=== PATIENT | female | born 1965 | race Two or more races ===

== ENCOUNTER 2017-06-18 20:34 | Inpatient (IN) | payer MEDICARE, OTHER ==
[~2017-06-18] VITALS: Ht 175.3 cm; Wt 151.0 kg
[2017-06-18 21:12] LABS: BASOPHILS # (AUTO) 0.1 /CMM (0.0-0.2); BASOPHILS % (AUTO) 1.1 % (0.0-2.0); EOSINOPHILS # (AUTO) 0.5 /CMM (0.0-0.7); EOSINOPHILS % (AUTO) 6.1 % (0.0-6.0); HEMATOCRIT 30 % (33-45); HEMOGLOBIN 9.9 g/dL (11.5-14.8); LYMPHOCYTES # (AUTO) 2.5 /CMM (0.8-4.8); LYMPHOCYTES % (AUTO) 30.5 % (20.0-44.0); MEAN CORPUSCULAR HEMOGLOBIN 25 PG (26.0-33.0); MEAN CORPUSCULAR HGB CONC 33 g/dl (31.0-36.0); MEAN CORPUSCULAR VOLUME 77 fL (82-100); MONOCYTES # (AUTO) 0.4 /CMM (0.1-1.30); MONOCYTES % (AUTO) 5.3 % (2.0-12.0); NEUTROPHILS # (AUTO) 4.8 /CMM (1.8-8.9); PLATELET COUNT (AUTO) 424 /CMM (150-450); RDW COEFFICIENT OF VARIATION 15.5 (11.5-15.0); RED BLOOD CELL COUNT(AUTO) 3.91 MIL/uL (4.0-5.2); WHITE BLOOD COUNT (AUTO) 8.3 K/uL (4.3-11.0)
[2017-06-18 21:24] LABS: CALCIUM, SERUM 9.1 mg/dL (8.5-10.1); CREATININE 3.3 mg/dL (0.6-1.3); POTASSIUM 4.1 mmol/L (3.5-5.1)
[2017-06-18] MEDS ORDERED: MAGNESIUM HYDROXIDE 30 ML UDC PO PRN (22:30)
[2017-06-18] MEDS ORDERED: ACETAMINOPHEN 325 MG TABLET PO PRN (22:30)
[2017-06-18] MEDS ORDERED: PIPERACILLIN /TAZOBACTAM 2.25 G in IV D5W 50 ML IV ONE (22:30)
[2017-06-18] MEDS ORDERED: MAG HYDROX/AL HYDROX/SIMETH 30 ML UDC PO PRN (22:30)
[2017-06-18] MEDS ORDERED: ONDANSETRON HCL/PF 4 MG/2 ML VIAL IVP PRN (22:30)
[2017-06-18] MEDS ORDERED: PIPERACILLIN /TAZOBACTAM 3.375 G VIAL IV ONE (22:40)
[2017-06-18] MEDS ORDERED: PIPERACILLIN /TAZOBACTAM 2.25 G VIAL IV ONE (23:09)
[2017-06-18] MEDS ORDERED: HYDROMORPHONE INJ 0.5 MG/0.5 ML SYRINGE ONE (23:26)
[2017-06-18] MEDS ORDERED: VANCOMYCIN 1 GM in IV D5W 250 ML IV ONE (23:30)
[2017-06-18] MEDS: HYDROMORPHONE INJ 2 MG/ML DISP.SYRIN IV PRN (23:30)
[2017-06-19 00:15] VITALS: BP 141/67
[2017-06-19 01:00] VITALS: BP 144/55
[2017-06-19] MEDS: HYDROCODONE/APAP 5/325MG 1 EACH TABLET PO PRN ×2 (01:33→09:02)
[2017-06-19] MEDS ORDERED: VANCOMYCIN 1 GM VIAL ONE (01:43)
[2017-06-19] MEDS ORDERED: FERR325T23 PO (02:35)
[2017-06-19] MEDS ORDERED: MULT-1185 PO (02:35)
[2017-06-19] MEDS ORDERED: FURO-144 PO (02:35)
[2017-06-19] MEDS ORDERED: LACT1CAP63 PO (02:35)
[2017-06-19] MEDS ORDERED: INSU100C10 SQ (02:35)
[2017-06-19] MEDS ORDERED: SERT100T PO (02:35)
[2017-06-19] MEDS ORDERED: DIVA500T2 PO (02:35)
[2017-06-19] MEDS ORDERED: VIT500LI PO (02:35)
[2017-06-19] MEDS ORDERED: INSU100V7 SQ (02:35)
[2017-06-19] MEDS ORDERED: AMLO5TAB4 PO (02:35)
[2017-06-19] MEDS ORDERED: CRAN450C PO (02:35)
[2017-06-19] MEDS ORDERED: LISI10TA5 PO (02:35)
[2017-06-19] MEDS ORDERED: GABA-534 PO (02:35)
[2017-06-19] MEDS ORDERED: EPOE40002 IJ (02:35)
[2017-06-19] MEDS ORDERED: ATOR20TA PO (02:35)
[2017-06-19] MEDS ORDERED: METO25TA6 PO (02:35)
[2017-06-19] MEDS ORDERED: ASPI-1169 PO (02:35)
[2017-06-19] MEDS ORDERED: ZINC220C6 PO (02:35)
[2017-06-19] MEDS ORDERED: TIZA4CAP PO (02:37)
[2017-06-19] MEDS: HYDROMORPHONE INJ 2 MG/ML DISP.SYRIN IV PRN ×4 (05:31→21:28)
[2017-06-19] MEDS ORDERED: PIPERACILLIN /TAZOBACTAM 2.25 G VIAL IV ONE (05:32)
[2017-06-19] MEDS: PIPERACILLIN /TAZOBACTAM 2.25 G in IV D5W 50 ML IV SCH ×4 (05:35→23:15)
[2017-06-19] MEDS ORDERED: DEXTROSE 50%-WATER 50 ML DISP.SYRIN IV PRN (07:30)
[2017-06-19 08:00] VITALS: BP 123/69
[2017-06-19] MEDS ORDERED: FEE PK DOSING 1 MIN EA MC ONE (08:06)
[2017-06-19] MEDS: BLOOD SUGAR DIAGNOSTIC 1 EACH STRIP IN SCH ×4 (08:55→21:20)
[2017-06-19] MEDS: ASPIRIN 81 MG TAB.CHEW PO SCH (08:56)
[2017-06-19] MEDS: ACIDOPHILUS/BULGARICUS 1 EACH TAB.CHEW PO SCH (08:56)
[2017-06-19] MEDS: ZINC SULFATE 220 MG CAPSULE PO SCH (08:57)
[2017-06-19] MEDS: DIVALPROEX SODIUM 500 MG TABLET.DR PO SCH ×2 (08:57→17:36)
[2017-06-19] MEDS: FERROUS SULFATE (325 MG) 325 MG/TAB TABLET PO SCH ×2 (08:57→17:37)
[2017-06-19] MEDS: TIZANIDINE HCL 4 MG TABLET PO SCH ×3 (08:58→17:36)
[2017-06-19] MEDS: FUROSEMIDE 40 MG TABLET PO SCH ×2 (08:58→17:35)
[2017-06-19] MEDS: SERTRALINE HCL 50 MG TABLET PO SCH (08:59)
[2017-06-19] MEDS: MULTIVIT, IRON, MIN NO. 8, FA 1 TAB PO SCH (08:59)
[2017-06-19] MEDS ORDERED: CRANBERRY FRUIT PO SCH (09:00)
[2017-06-19] MEDS ORDERED: GABAPENTIN 300 MG CAPSULE PO SCH (09:00)
[2017-06-19] MEDS: AMLODIPINE BESYLATE 5 MG TABLET PO SCH (09:00)
[2017-06-19] MEDS: METOPROLOL TARTRATE 25 MG TABLET PO SCH ×2 (09:01→17:39)
[2017-06-19] MEDS: ASCORBIC ACID 500 MG TABLET PO SCH ×2 (09:01→17:37)
[2017-06-19] MEDS: INSULIN REGULAR, HUMAN 100 UNIT/ML 3 ML VIAL SQ PRN ×2 (09:13→17:54)
[2017-06-19 11:02] LABS: BASOPHILS % (AUTO) 0.5 % (0.0-2.0); EOSINOPHILS # (AUTO) 0.5 /CMM (0.0-0.7); EOSINOPHILS % (AUTO) 6.5 % (0.0-6.0); HEMATOCRIT 28 % (33-45); HEMOGLOBIN 9.1 g/dL (11.5-14.8); LYMPHOCYTES # (AUTO) 2.6 /CMM (0.8-4.8); LYMPHOCYTES % (AUTO) 33.5 % (20.0-44.0); MEAN CORPUSCULAR HEMOGLOBIN 26 PG (26.0-33.0); MEAN CORPUSCULAR HGB CONC 33 g/dl (31.0-36.0); MEAN CORPUSCULAR VOLUME 78 fL (82-100); MONOCYTES # (AUTO) 0.5 /CMM (0.1-1.30); MONOCYTES % (AUTO) 6.7 % (2.0-12.0); NEUTROPHILS # (AUTO) 4.2 /CMM (1.8-8.9); NEUTROPHILS % (AUTO) 52.8 % (43.0-81.0); PLATELET COUNT (AUTO) 339 /CMM (150-450); RDW COEFFICIENT OF VARIATION 16.8 (11.5-15.0); RED BLOOD CELL COUNT(AUTO) 3.57 MIL/uL (4.0-5.2); WHITE BLOOD COUNT (AUTO) 7.9 K/uL (4.3-11.0)
[2017-06-19 11:29] LABS: CALCIUM, SERUM 8.8 mg/dL (8.5-10.1); CREATININE 3.4 mg/dL (0.6-1.3); MAGNESIUM 1.5 mg/dL (1.8-2.4); PHOSPHORUS 4.7 mg/dL (2.5-4.9); POTASSIUM 4.2 mmol/L (3.5-5.1)
[2017-06-19 11:34] LABS: THYROID STIMULATING HORMONE 7.326 uIU/mL (0.358-3.74)
[2017-06-19] MEDS: oxyCODONE HCL SR 10MG TAB.SR.12H PO SCH ×2 (13:40→20:19)
[2017-06-19] MEDS: ACETAMINOPHEN 325 MG TABLET PO SCH ×2 (13:41→17:36)
[2017-06-19] MEDS: Z GUARD REMEDY 2 OZ OINT TP PRN ×2 (13:43→17:55)
[2017-06-19] MEDS ORDERED: Magnesium 1 GM/2 ML VIAL IV ONE (14:00)
[2017-06-19] MEDS: Magnesium 1GM/D5W 100ML PREMIX 100 ML IV SCH ×3 (15:16→18:08)
[2017-06-19] MEDS: EPOETIN ALFA (4000 UNIT) 4,000 UNIT/ML VIAL SQ SCH (15:19)
[2017-06-19 16:00] VITALS: BP 130/61
[2017-06-19] MEDS: GABAPENTIN 300 MG CAPSULE PO SCH (18:07)
[2017-06-19 20:00] VITALS: BP 102/54
[2017-06-19] MEDS: ATORVASTATIN 10 MG TABLET PO SCH (21:21)
[2017-06-19] MEDS: INSULIN GLARGINE, 100 UNIT/ML CARTRIDGE SQ SCH (21:21)
[2017-06-20] MEDS: GABAPENTIN 300 MG CAPSULE PO SCH ×3 (00:08→15:26)
[2017-06-20] MEDS: HYDROMORPHONE INJ 2 MG/ML DISP.SYRIN IV PRN (03:28)
[2017-06-20] MEDS: PIPERACILLIN /TAZOBACTAM 2.25 G in IV D5W 50 ML IV SCH ×3 (05:47→18:00)
[2017-06-20] MEDS: ACETAMINOPHEN 325 MG TABLET PO SCH ×5 (06:00→23:46)
[2017-06-20] MEDS ORDERED: LIDOCAINE 0.5% HCL 50 ML VIAL ONE (06:49)
[2017-06-20] MEDS ORDERED: BUPIVACAINE 0.5 % PF 150 MG/30 ML VIAL ONE (06:49)
[2017-06-20] MEDS ORDERED: ANESTHESIA TRAY IN PYXIS 1 EA TRAY MC ONE (06:49)
[2017-06-20] MEDS: BLOOD SUGAR DIAGNOSTIC 1 EACH STRIP IN SCH ×4 (06:53→21:21)
[2017-06-20 07:00] VITALS: BP 122/79
[2017-06-20 07:20] LABS: BASOPHILS # (AUTO) 0.1 /CMM (0.0-0.2); BASOPHILS % (AUTO) 0.7 % (0.0-2.0); EOSINOPHILS # (AUTO) 0.6 /CMM (0.0-0.7); EOSINOPHILS % (AUTO) 8.3 % (0.0-6.0); HEMATOCRIT 29 % (33-45); HEMOGLOBIN 9.4 g/dL (11.5-14.8); LYMPHOCYTES # (AUTO) 2.5 /CMM (0.8-4.8); MEAN CORPUSCULAR HEMOGLOBIN 26 PG (26.0-33.0); MEAN CORPUSCULAR HGB CONC 33 g/dl (31.0-36.0); MEAN CORPUSCULAR VOLUME 79 fL (82-100); MONOCYTES # (AUTO) 0.5 /CMM (0.1-1.30); MONOCYTES % (AUTO) 6.6 % (2.0-12.0); NEUTROPHILS # (AUTO) 3.6 /CMM (1.8-8.9); NEUTROPHILS % (AUTO) 49.4 % (43.0-81.0); PLATELET COUNT (AUTO) 349 /CMM (150-450); RDW COEFFICIENT OF VARIATION 16.9 (11.5-15.0); RED BLOOD CELL COUNT(AUTO) 3.63 MIL/uL (4.0-5.2); WHITE BLOOD COUNT (AUTO) 7.3 K/uL (4.3-11.0)
[2017-06-20 07:27] LABS: CALCIUM, SERUM 8.9 mg/dL (8.5-10.1); CREATININE 3.5 mg/dL (0.6-1.3); POTASSIUM 4.6 mmol/L (3.5-5.1)
[2017-06-20] MEDS ORDERED: ROCURONIUM BROMIDE 50 MG/5 ML ONE (07:29)
[2017-06-20] MEDS ORDERED: SUCCINYLCHOLINE CHLORIDE 20 MG/ML VIAL ONE (07:29)
[2017-06-20 08:00] VITALS: BP 133/69
[2017-06-20] MEDS ORDERED: CELLULOSE,OXIDIZED 1 EA PACK MC ONE (08:10)
[2017-06-20] MEDS ORDERED: THROMBIN (BOVINE) 5,000 UNITS VIAL TP ONE (08:20)
[2017-06-20] MEDS: ACIDOPHILUS/BULGARICUS 1 EACH TAB.CHEW PO SCH (09:00)
[2017-06-20] MEDS: FERROUS SULFATE (325 MG) 325 MG/TAB TABLET PO SCH ×2 (09:00→17:44)
[2017-06-20] MEDS: DIVALPROEX SODIUM 500 MG TABLET.DR PO SCH ×2 (09:00→17:44)
[2017-06-20] MEDS: oxyCODONE HCL SR 10MG TAB.SR.12H PO SCH ×2 (09:00→21:21)
[2017-06-20] MEDS: MULTIVIT, IRON, MIN NO. 8, FA 1 TAB PO SCH (09:00)
[2017-06-20] MEDS: ASPIRIN 81 MG TAB.CHEW PO SCH (09:00)
[2017-06-20] MEDS: SERTRALINE HCL 50 MG TABLET PO SCH (09:00)
[2017-06-20] MEDS: ASCORBIC ACID 500 MG TABLET PO SCH ×2 (09:00→17:53)
[2017-06-20] MEDS: METOPROLOL TARTRATE 25 MG TABLET PO SCH ×2 (09:00→17:44)
[2017-06-20] MEDS: AMLODIPINE BESYLATE 5 MG TABLET PO SCH (09:00)
[2017-06-20] MEDS: ZINC SULFATE 220 MG CAPSULE PO SCH (09:00)
[2017-06-20] MEDS: TIZANIDINE HCL 4 MG TABLET PO SCH ×3 (09:00→17:53)
[2017-06-20] MEDS: FUROSEMIDE 40 MG TABLET PO SCH ×2 (09:00→17:44)
[2017-06-20] MEDS: HYDROMORPHONE INJ 0.5 MG/0.5 ML SYRINGE IV PRN ×4 (09:47→23:52)
[2017-06-20 11:00] VITALS: BP 133/90
[2017-06-20] MEDS: INSULIN REGULAR, HUMAN 100 UNIT/ML 3 ML VIAL SQ PRN ×3 (12:59→21:30)
[2017-06-20] MEDS ORDERED: VANCOMYCIN 1 GM in IV D5W 250 ML IV SCH (14:00)
[2017-06-20] MEDS: HYDROCODONE/APAP 5/325MG 1 EACH TABLET PO PRN (15:27)
[2017-06-20] MEDS: EPOETIN ALFA (4000 UNIT) 4,000 UNIT/ML VIAL SQ SCH (15:28)
[2017-06-20 16:00] VITALS: BP 123/62
[2017-06-20 20:00] VITALS: BP 99/56
[2017-06-20] MEDS: ATORVASTATIN 10 MG TABLET PO SCH (21:21)
[2017-06-20] MEDS: INSULIN GLARGINE, 100 UNIT/ML CARTRIDGE SQ SCH (21:29)
[2017-06-20] MEDS ORDERED: HYDROMORPHONE INJ 0.5 MG/0.5 ML SYRINGE IV PRN (22:00)
[2017-06-21] MEDS: PIPERACILLIN /TAZOBACTAM 2.25 G in IV D5W 50 ML IV SCH ×3 (00:13→12:07)
[2017-06-21] MEDS: GABAPENTIN 300 MG CAPSULE PO SCH ×3 (00:15→17:30)
[2017-06-21] MEDS: HYDROCODONE/APAP 10/325MG 1 EA TABLET PO PRN (03:57)
[2017-06-21] MEDS: ACETAMINOPHEN 325 MG TABLET PO SCH ×3 (05:50→17:28)
[2017-06-21] MEDS: HYDROMORPHONE INJ 0.5 MG/0.5 ML SYRINGE IV PRN ×3 (06:17→17:32)
[2017-06-21] MEDS: INSULIN REGULAR, HUMAN 100 UNIT/ML 3 ML VIAL SQ PRN ×4 (07:15→21:31)
[2017-06-21] MEDS: BLOOD SUGAR DIAGNOSTIC 1 EACH STRIP IN SCH ×4 (07:16→21:13)
[2017-06-21 08:00] VITALS: BP 128/77
[2017-06-21 08:27] LABS: CALCIUM, SERUM 8.9 mg/dL (8.5-10.1); CREATININE 3.8 mg/dL (0.6-1.3); POTASSIUM 4.9 mmol/L (3.5-5.1)
[2017-06-21] MEDS: METOPROLOL TARTRATE 25 MG TABLET PO SCH ×2 (09:00→17:00)
[2017-06-21] MEDS ORDERED: MULTIVITAMINS,THERAGRAN 1 UDTAB TABLET PO SCH (09:00)
[2017-06-21] MEDS: ACIDOPHILUS/BULGARICUS 1 EACH TAB.CHEW PO SCH (09:27)
[2017-06-21] MEDS: FERROUS SULFATE (325 MG) 325 MG/TAB TABLET PO SCH ×2 (09:27→17:30)
[2017-06-21] MEDS: SERTRALINE HCL 50 MG TABLET PO SCH (09:32)
[2017-06-21] MEDS: ASCORBIC ACID 500 MG TABLET PO SCH (09:32)
[2017-06-21] MEDS: ZINC SULFATE 220 MG CAPSULE PO SCH (09:33)
[2017-06-21] MEDS: MULTIVIT, IRON, MIN NO. 8, FA 1 TAB PO SCH (09:33)
[2017-06-21] MEDS: DIVALPROEX SODIUM 500 MG TABLET.DR PO SCH ×2 (09:34→17:30)
[2017-06-21] MEDS: ASPIRIN 81 MG TAB.CHEW PO SCH (09:34)
[2017-06-21] MEDS: FUROSEMIDE 40 MG TABLET PO SCH ×2 (09:34→17:31)
[2017-06-21] MEDS: TIZANIDINE HCL 4 MG TABLET PO SCH ×3 (09:34→17:30)
[2017-06-21] MEDS: oxyCODONE HCL SR 10MG TAB.SR.12H PO SCH ×2 (09:35→21:14)
[2017-06-21] MEDS: AMLODIPINE BESYLATE 5 MG TABLET PO SCH (09:35)
[2017-06-21 16:00] VITALS: BP 123/68
[2017-06-21] MEDS: MEROPENEM 500 MG in IV NS 0.9% 50 ML IV SCH (17:27)
[2017-06-21 17:28] LABS: HEMOGLOBIN 8.8 g/dL (11.5-14.8)
[2017-06-21] MEDS: EPOETIN ALFA (4000 UNIT) 4,000 UNIT/ML VIAL SQ SCH (19:06)
[2017-06-21 20:00] VITALS: BP 111/58
[2017-06-21] MEDS: ATORVASTATIN 10 MG TABLET PO SCH (21:14)
[2017-06-21 22:00] VITALS: BP 112/60
[2017-06-21] MEDS ORDERED: INSULIN GLARGINE, 100 UNIT/ML CARTRIDGE SQ ONE (22:24)
[2017-06-21] MEDS: INSULIN GLARGINE, 100 UNIT/ML CARTRIDGE SQ SCH (22:38)
[2017-06-22] MEDS: ACETAMINOPHEN 325 MG TABLET PO SCH ×4 (00:19→18:16)
[2017-06-22] MEDS: GABAPENTIN 300 MG CAPSULE PO SCH ×3 (00:19→16:05)
[2017-06-22] MEDS: HYDROMORPHONE INJ 0.5 MG/0.5 ML SYRINGE IV PRN ×4 (02:34→22:10)
[2017-06-22] MEDS: MEROPENEM 500 MG in IV NS 0.9% 50 ML IV SCH ×2 (03:02→16:06)
[2017-06-22] MEDS: HYDROCODONE/APAP 10/325MG 1 EA TABLET PO PRN ×2 (04:52→14:38)
[2017-06-22] MEDS: INSULIN REGULAR, HUMAN 100 UNIT/ML 3 ML VIAL SQ PRN ×4 (06:37→22:23)
[2017-06-22] MEDS: BLOOD SUGAR DIAGNOSTIC 1 EACH STRIP IN SCH ×4 (06:41→22:10)
[2017-06-22 07:34] LABS: CALCIUM, SERUM 8.8 mg/dL (8.5-10.1); POTASSIUM 4.3 mmol/L (3.5-5.1)
[2017-06-22 08:00] VITALS: BP 122/51
[2017-06-22] MEDS: FUROSEMIDE 40 MG TABLET PO SCH ×2 (09:10→16:05)
[2017-06-22] MEDS: TIZANIDINE HCL 4 MG TABLET PO SCH ×3 (09:10→16:05)
[2017-06-22] MEDS: METOPROLOL TARTRATE 25 MG TABLET PO SCH ×2 (09:10→16:05)
[2017-06-22] MEDS: ASPIRIN 81 MG TAB.CHEW PO SCH (09:10)
[2017-06-22] MEDS: oxyCODONE HCL SR 10MG TAB.SR.12H PO SCH ×2 (09:11→20:40)
[2017-06-22] MEDS: AMLODIPINE BESYLATE 5 MG TABLET PO SCH (09:11)
[2017-06-22] MEDS: FERROUS SULFATE (325 MG) 325 MG/TAB TABLET PO SCH ×2 (09:11→16:05)
[2017-06-22] MEDS: MULTIVIT, IRON, MIN NO. 8, FA 1 TAB PO SCH (09:11)
[2017-06-22] MEDS: ZINC SULFATE 220 MG CAPSULE PO SCH (09:11)
[2017-06-22] MEDS: ASCORBIC ACID 500 MG TABLET PO SCH (09:11)
[2017-06-22] MEDS: SERTRALINE HCL 50 MG TABLET PO SCH (09:11)
[2017-06-22] MEDS: DIVALPROEX SODIUM 500 MG TABLET.DR PO SCH ×2 (09:11→16:05)
[2017-06-22] MEDS: ACIDOPHILUS/BULGARICUS 1 EACH TAB.CHEW PO SCH (09:11)
[2017-06-22 15:34] LABS: BASOPHILS # (AUTO) 0.1 /CMM (0.0-0.2); BASOPHILS % (AUTO) 0.8 % (0.0-2.0); EOSINOPHILS # (AUTO) 0.7 /CMM (0.0-0.7); EOSINOPHILS % (AUTO) 7.8 % (0.0-6.0); HEMATOCRIT 28 % (33-45); HEMOGLOBIN 8.9 g/dL (11.5-14.8); LYMPHOCYTES # (AUTO) 3.4 /CMM (0.8-4.8); LYMPHOCYTES % (AUTO) 39.4 % (20.0-44.0); MEAN CORPUSCULAR HEMOGLOBIN 25 PG (26.0-33.0); MEAN CORPUSCULAR HGB CONC 33 g/dl (31.0-36.0); MEAN CORPUSCULAR VOLUME 78 fL (82-100); MONOCYTES # (AUTO) 0.5 /CMM (0.1-1.30); PLATELET COUNT (AUTO) 318 /CMM (150-450); RDW COEFFICIENT OF VARIATION 17.3 (11.5-15.0); RED BLOOD CELL COUNT(AUTO) 3.53 MIL/uL (4.0-5.2); WHITE BLOOD COUNT (AUTO) 8.6 K/uL (4.3-11.0)
[2017-06-22 16:00] VITALS: BP 117/57
[2017-06-22] MEDS: EPOETIN ALFA (4000 UNIT) 4,000 UNIT/ML VIAL SQ SCH (18:52)
[2017-06-22 20:00] VITALS: BP 112/65
[2017-06-22 22:00] VITALS: BP 112/65
[2017-06-22] MEDS: ATORVASTATIN 10 MG TABLET PO SCH (22:09)
[2017-06-22] MEDS: INSULIN GLARGINE, 100 UNIT/ML CARTRIDGE SQ SCH (22:25)
[2017-06-23] MEDS: ACETAMINOPHEN 325 MG TABLET PO SCH ×5 (00:04→23:04)
[2017-06-23] MEDS: GABAPENTIN 300 MG CAPSULE PO SCH ×3 (00:04→16:50)
[2017-06-23] MEDS: MEROPENEM 500 MG in IV NS 0.9% 50 ML IV SCH ×2 (04:45→15:54)
[2017-06-23] MEDS: HYDROMORPHONE INJ 0.5 MG/0.5 ML SYRINGE IV PRN ×4 (04:46→23:03)
[2017-06-23] MEDS: INSULIN REGULAR, HUMAN 100 UNIT/ML 3 ML VIAL SQ PRN ×4 (06:20→21:37)
[2017-06-23] MEDS: BLOOD SUGAR DIAGNOSTIC 1 EACH STRIP IN SCH ×4 (06:20→21:36)
[2017-06-23 08:00] VITALS: BP 127/85
[2017-06-23 08:04] LABS: BASOPHILS # (AUTO) 0.1 /CMM (0.0-0.2); BASOPHILS % (AUTO) 0.7 % (0.0-2.0); EOSINOPHILS # (AUTO) 0.7 /CMM (0.0-0.7); EOSINOPHILS % (AUTO) 7.3 % (0.0-6.0); HEMATOCRIT 28 % (33-45); HEMOGLOBIN 9.2 g/dL (11.5-14.8); LYMPHOCYTES # (AUTO) 4.1 /CMM (0.8-4.8); LYMPHOCYTES % (AUTO) 40.8 % (20.0-44.0); MEAN CORPUSCULAR HEMOGLOBIN 26 PG (26.0-33.0); MEAN CORPUSCULAR HGB CONC 33 g/dl (31.0-36.0); MEAN CORPUSCULAR VOLUME 78 fL (82-100); MONOCYTES # (AUTO) 0.7 /CMM (0.1-1.30); NEUTROPHILS # (AUTO) 4.4 /CMM (1.8-8.9); NEUTROPHILS % (AUTO) 44.2 % (43.0-81.0); PLATELET COUNT (AUTO) 322 /CMM (150-450); RED BLOOD CELL COUNT(AUTO) 3.57 MIL/uL (4.0-5.2)
[2017-06-23 08:22] LABS: CREATININE 4.1 mg/dL (0.6-1.3); PHOSPHORUS 5.7 mg/dL (2.5-4.9); POTASSIUM 4.3 mmol/L (3.5-5.1)
[2017-06-23] MEDS: ASCORBIC ACID 500 MG TABLET PO SCH (08:40)
[2017-06-23] MEDS: ZINC SULFATE 220 MG CAPSULE PO SCH (08:40)
[2017-06-23] MEDS: FERROUS SULFATE (325 MG) 325 MG/TAB TABLET PO SCH ×2 (08:40→16:50)
[2017-06-23] MEDS: FUROSEMIDE 40 MG TABLET PO SCH (08:41)
[2017-06-23] MEDS: ASPIRIN 81 MG TAB.CHEW PO SCH (08:41)
[2017-06-23] MEDS: METOPROLOL TARTRATE 25 MG TABLET PO SCH ×2 (08:41→16:50)
[2017-06-23] MEDS: DIVALPROEX SODIUM 500 MG TABLET.DR PO SCH ×2 (08:41→16:50)
[2017-06-23] MEDS: MULTIVIT, IRON, MIN NO. 8, FA 1 TAB PO SCH (08:41)
[2017-06-23] MEDS: ACIDOPHILUS/BULGARICUS 1 EACH TAB.CHEW PO SCH (08:41)
[2017-06-23] MEDS: TIZANIDINE HCL 4 MG TABLET PO SCH ×3 (08:41→16:50)
[2017-06-23] MEDS: AMLODIPINE BESYLATE 5 MG TABLET PO SCH (08:41)
[2017-06-23] MEDS: SERTRALINE HCL 50 MG TABLET PO SCH (08:41)
[2017-06-23] MEDS: oxyCODONE HCL SR 10MG TAB.SR.12H PO SCH ×2 (08:42→21:36)
[2017-06-23] MEDS: HYDROCODONE/APAP 10/325MG 1 EA TABLET PO PRN (12:17)
[2017-06-23 16:00] VITALS: BP 91/52
[2017-06-23] MEDS: EPOETIN ALFA (4000 UNIT) 4,000 UNIT/ML VIAL SQ SCH (16:45)
[2017-06-23 20:00] VITALS: BP 103/52
[2017-06-23] MEDS: ATORVASTATIN 10 MG TABLET PO SCH (21:36)
[2017-06-23] MEDS: INSULIN GLARGINE, 100 UNIT/ML CARTRIDGE SQ SCH (21:39)
[2017-06-24] MEDS: GABAPENTIN 300 MG CAPSULE PO SCH ×3 (00:27→17:04)
[2017-06-24] MEDS: HYDROCODONE/APAP 10/325MG 1 EA TABLET PO PRN ×2 (02:35→15:32)
[2017-06-24] MEDS: MEROPENEM 500 MG in IV NS 0.9% 50 ML IV SCH ×2 (05:10→16:57)
[2017-06-24] MEDS: HYDROMORPHONE INJ 0.5 MG/0.5 ML SYRINGE IV PRN ×3 (05:16→20:18)
[2017-06-24] MEDS: ACETAMINOPHEN 325 MG TABLET PO SCH ×3 (06:34→17:47)
[2017-06-24] MEDS: BLOOD SUGAR DIAGNOSTIC 1 EACH STRIP IN SCH ×4 (07:20→21:53)
[2017-06-24 08:00] VITALS: BP 118/67
[2017-06-24] MEDS: DIVALPROEX SODIUM 500 MG TABLET.DR PO SCH ×2 (08:51→17:03)
[2017-06-24] MEDS: ZINC SULFATE 220 MG CAPSULE PO SCH (08:52)
[2017-06-24] MEDS: oxyCODONE HCL SR 10MG TAB.SR.12H PO SCH ×2 (08:52→21:52)
[2017-06-24] MEDS: ACIDOPHILUS/BULGARICUS 1 EACH TAB.CHEW PO SCH (08:52)
[2017-06-24] MEDS: ASCORBIC ACID 500 MG TABLET PO SCH (08:53)
[2017-06-24] MEDS: ASPIRIN 81 MG TAB.CHEW PO SCH (08:53)
[2017-06-24] MEDS: FERROUS SULFATE (325 MG) 325 MG/TAB TABLET PO SCH ×2 (08:53→17:04)
[2017-06-24] MEDS: MULTIVIT, IRON, MIN NO. 8, FA 1 TAB PO SCH (08:54)
[2017-06-24] MEDS: TIZANIDINE HCL 4 MG TABLET PO SCH ×3 (08:54→17:04)
[2017-06-24] MEDS: SERTRALINE HCL 50 MG TABLET PO SCH (08:54)
[2017-06-24] MEDS: METOPROLOL TARTRATE 25 MG TABLET PO SCH ×2 (08:56→18:20)
[2017-06-24] MEDS: AMLODIPINE BESYLATE 5 MG TABLET PO SCH (08:56)
[2017-06-24] MEDS ORDERED: HYDROMORPHONE INJ 0.5 MG/0.5 ML SYRINGE IV ONE (11:00)
[2017-06-24 11:40] LABS: BASOPHILS # (AUTO) 0.1 /CMM (0.0-0.2); BASOPHILS % (AUTO) 0.9 % (0.0-2.0); EOSINOPHILS # (AUTO) 0.8 /CMM (0.0-0.7); EOSINOPHILS % (AUTO) 7.3 % (0.0-6.0); HEMATOCRIT 29 % (33-45); HEMOGLOBIN 9.3 g/dL (11.5-14.8); LYMPHOCYTES # (AUTO) 3.9 /CMM (0.8-4.8); LYMPHOCYTES % (AUTO) 37.4 % (20.0-44.0); MEAN CORPUSCULAR HEMOGLOBIN 25 PG (26.0-33.0); MEAN CORPUSCULAR HGB CONC 32 g/dl (31.0-36.0); MEAN CORPUSCULAR VOLUME 79 fL (82-100); MONOCYTES # (AUTO) 0.6 /CMM (0.1-1.30); MONOCYTES % (AUTO) 6.1 % (2.0-12.0); NEUTROPHILS % (AUTO) 48.3 % (43.0-81.0); PLATELET COUNT (AUTO) 373 /CMM (150-450); RDW COEFFICIENT OF VARIATION 17.5 (11.5-15.0); RED BLOOD CELL COUNT(AUTO) 3.67 MIL/uL (4.0-5.2); WHITE BLOOD COUNT (AUTO) 10.3 K/uL (4.3-11.0)
[2017-06-24 11:52] LABS: ALBUMIN 2.5 g/dL (3.4-5.0); BILIRUBIN,TOTAL 0.2 mg/dL (0.2-1.0); CALCIUM, SERUM 8.9 mg/dL (8.5-10.1); CREATININE 4.3 mg/dL (0.6-1.3); PHOSPHORUS 5.3 mg/dL (2.5-4.9); POTASSIUM 4.2 mmol/L (3.5-5.1)
[2017-06-24] MEDS: INSULIN REGULAR, HUMAN 100 UNIT/ML 3 ML VIAL SQ PRN ×3 (12:17→21:57)
[2017-06-24] MEDS ORDERED: IV NS 0.9% 500 ML IV ONE (13:00)
[2017-06-24] MEDS: EPOETIN ALFA (4000 UNIT) 4,000 UNIT/ML VIAL SQ SCH (15:34)
[2017-06-24 15:54] LABS: CREATININE, URINE 143.2 MG/DL (30.0-125.0)
[2017-06-24 16:00] VITALS: BP 134/86
[2017-06-24 18:50] VITALS: BP 100/60
[2017-06-24 20:00] VITALS: BP 118/52
[2017-06-24] MEDS: ATORVASTATIN 10 MG TABLET PO SCH (21:52)
[2017-06-24] MEDS: INSULIN GLARGINE, 100 UNIT/ML CARTRIDGE SQ SCH (21:57)
[2017-06-25] MEDS: GABAPENTIN 300 MG CAPSULE PO SCH ×2 (00:08→08:33)
[2017-06-25] MEDS: ACETAMINOPHEN 325 MG TABLET PO SCH ×3 (00:08→11:45)
[2017-06-25] MEDS: HYDROCODONE/APAP 10/325MG 1 EA TABLET PO PRN ×2 (01:26→15:19)
[2017-06-25] MEDS: MEROPENEM 500 MG in IV NS 0.9% 50 ML IV SCH (05:28)
[2017-06-25] MEDS: HYDROMORPHONE INJ 0.5 MG/0.5 ML SYRINGE IV PRN (05:28)
[2017-06-25] MEDS: BLOOD SUGAR DIAGNOSTIC 1 EACH STRIP IN SCH ×2 (06:35→11:42)
[2017-06-25] MEDS: INSULIN REGULAR, HUMAN 100 UNIT/ML 3 ML VIAL SQ PRN ×2 (06:42→11:57)
[2017-06-25 08:00] VITALS: BP 122/62
[2017-06-25 08:12] LABS: BASOPHILS # (AUTO) 0.1 /CMM (0.0-0.2); BASOPHILS % (AUTO) 0.6 % (0.0-2.0); EOSINOPHILS # (AUTO) 0.8 /CMM (0.0-0.7); EOSINOPHILS % (AUTO) 7.6 % (0.0-6.0); HEMATOCRIT 29 % (33-45); HEMOGLOBIN 9.2 g/dL (11.5-14.8); LYMPHOCYTES # (AUTO) 3.5 /CMM (0.8-4.8); LYMPHOCYTES % (AUTO) 35.3 % (20.0-44.0); MEAN CORPUSCULAR HEMOGLOBIN 25 PG (26.0-33.0); MEAN CORPUSCULAR HGB CONC 32 g/dl (31.0-36.0); MEAN CORPUSCULAR VOLUME 78 fL (82-100); MONOCYTES # (AUTO) 0.6 /CMM (0.1-1.30); MONOCYTES % (AUTO) 6.4 % (2.0-12.0); NEUTROPHILS % (AUTO) 50.1 % (43.0-81.0); PLATELET COUNT (AUTO) 355 /CMM (150-450); RED BLOOD CELL COUNT(AUTO) 3.65 MIL/uL (4.0-5.2); WHITE BLOOD COUNT (AUTO) 10.1 K/uL (4.3-11.0)
[2017-06-25 08:24] LABS: CALCIUM, SERUM 8.9 mg/dL (8.5-10.1); CREATININE 4.4 mg/dL (0.6-1.3); PHOSPHORUS 5.3 mg/dL (2.5-4.9); POTASSIUM 4.4 mmol/L (3.5-5.1)
[2017-06-25] MEDS: AMLODIPINE BESYLATE 5 MG TABLET PO SCH (08:33)
[2017-06-25] MEDS: TIZANIDINE HCL 4 MG TABLET PO SCH ×2 (08:33→12:00)
[2017-06-25] MEDS: DIVALPROEX SODIUM 500 MG TABLET.DR PO SCH (08:34)
[2017-06-25] MEDS: ZINC SULFATE 220 MG CAPSULE PO SCH (08:34)
[2017-06-25] MEDS: ASPIRIN 81 MG TAB.CHEW PO SCH (08:34)
[2017-06-25] MEDS: ASCORBIC ACID 500 MG TABLET PO SCH (08:35)
[2017-06-25] MEDS: FERROUS SULFATE (325 MG) 325 MG/TAB TABLET PO SCH (08:35)
[2017-06-25] MEDS: METOPROLOL TARTRATE 25 MG TABLET PO SCH (08:35)
[2017-06-25] MEDS: MULTIVIT, IRON, MIN NO. 8, FA 1 TAB PO SCH (08:35)
[2017-06-25] MEDS: SERTRALINE HCL 50 MG TABLET PO SCH (08:36)
[2017-06-25] MEDS: oxyCODONE HCL SR 10MG TAB.SR.12H PO SCH (08:36)
[2017-06-25] MEDS: ACIDOPHILUS/BULGARICUS 1 EACH TAB.CHEW PO SCH (08:41)
[2017-06-25] MEDS ORDERED: DOSING PER PHARMACY-AMIKACI IV XX PRN (10:30)
[2017-06-25] MEDS ORDERED: FEE PK DOSING 1 MIN EA MC ONE (11:10)
[2017-06-25] MEDS ORDERED: IV NS 0.9% 1,000 ML IV PRN (11:30)
[2017-06-25] MEDS ORDERED: HYDROMORPHONE INJ 2 MG/ML DISP.SYRIN IV ONE (11:30)
[2017-06-25] MEDS ORDERED: AMIKACIN 500 MG in IV NS 0.9% 100 ML IV SCH (12:00)
[2017-06-25] MEDS ORDERED: BACI/NEOM/POLY B OINT PKT 1 UDPKT PACKET TP SCH (13:00)
[2017-06-25] MEDS ORDERED: oxyCODONE HCL SR 10MG PO (13:49)
[2017-06-25] MEDS ORDERED: ASCO500T9 PO (13:49)
[2017-06-25] MEDS ORDERED: AMIK250V13 IV (13:49)
[2017-06-25] MEDS ORDERED: Hydrocodone/Apap 10/325MG PO (13:49)
[2017-06-25] MEDS ORDERED: HYDR0.5S3 IV (13:49)
[2017-06-25] MEDS ORDERED: GABA300C PO (13:49)
[2017-06-25] MEDS ORDERED: NEOM1PAC2 MC (13:52)
[2017-06-25] MEDS: EPOETIN ALFA (4000 UNIT) 4,000 UNIT/ML VIAL SQ SCH (15:19)
[2017-06-25 16:00] VITALS: BP 180/84
== END 2017-06-25 16:45 | DRG 623 ==
LOC: ER 20:36 → MED 23:21 → ICU 06-20 09:42 → MED 06-20 09:55
PROVIDERS: ADMIT Nurse Practitioner Acute Care; ATTEND Nurse Practitioner Acute Care
PROC: 02HV33Z Insertion of Infusion Device into Superior Vena Cava, Percutaneous Approach (ICD-10-PCS; 2017-06-19)
PROC: 0HRMXJ3 Replacement of Right Foot Skin with Synthetic Substitute, Full Thickness, External Approach (ICD-10-PCS; 2017-06-20)
PROC: 0KBV0ZZ Excision of Right Foot Muscle, Open Approach (ICD-10-PCS; principal; 2017-06-20 07:54)
DX: E11.621 Type 2 diabetes mellitus with foot ulcer (principal); L97.419 Non-pressure chronic ulcer of right heel and midfoot with unspecified severity; L97.519 Non-pressure chronic ulcer of other part of right foot with unspecified severity; L89.619 Pressure ulcer of right heel, unspecified stage; E11.22 Type 2 diabetes mellitus with diabetic chronic kidney disease; E11.42 Type 2 diabetes mellitus with diabetic polyneuropathy; D50.9 Iron deficiency anemia, unspecified; F12.90 Cannabis use, unspecified, uncomplicated; L03.115 Cellulitis of right lower limb; I13.0 Hypertensive heart and chronic kidney disease with heart failure and stage 1 through stage 4 chronic kidney disease, or unspecified chronic kidney disease; Z68.42 Body mass index [BMI] 45.0-49.9, adult; E44.1 Mild protein-calorie malnutrition; I50.32 Chronic diastolic (congestive) heart failure; N18.4 Chronic kidney disease, stage 4 (severe); I50.9 Heart failure, unspecified; E66.9 Obesity, unspecified; Z88.1 Allergy status to other antibiotic agents; E03.9 Hypothyroidism, unspecified; E11.622 Type 2 diabetes mellitus with other skin ulcer; E11.65 Type 2 diabetes mellitus with hyperglycemia; E83.42 Hypomagnesemia; M77.30 Calcaneal spur, unspecified foot; Z66 Do not resuscitate; E66.01 Morbid (severe) obesity due to excess calories; H91.92 Unspecified hearing loss, left ear; Z90.49 Acquired absence of other specified parts of digestive tract; Z79.4 Long term (current) use of insulin; Z79.899 Other long term (current) drug therapy; Z79.82 Long term (current) use of aspirin; G89.4 Chronic pain syndrome; S30.814A Abrasion of vagina and vulva, initial encounter; X58.XXXA Exposure to other specified factors, initial encounter; Y92.9 Unspecified place or not applicable
CPT/HCPCS: 36415; 71045-TC; 73630-TC; 80048-TC; 80053-TC; 80061-TC; 82570-TC; 82728-TC; 82962-TC; 83540-TC; 83735-TC; 84100-TC; 84300-TC; 84439-TC; 84443-TC; 85025-TC; 85027-TC; 85730-TC; 87070-TC; 87081-TC; 87186-TC; 88305-TC; 88312-TC; A4216; A4606; A6209; A6402; J0278; J0330; J0885; J1100; J1170; J1815; J2185; J2405; J2543; J2704; J2710; J3370; J3475; J3490; J7030; J7040; J7060; Z7610